=== PATIENT | female | born 1990 | race Asian ===

== ENCOUNTER 2016-07-07 18:48 | Emergency (ER) | payer OTHER ==
[~2016-07-07] VITALS: Ht 152.4 cm; Wt 49.4 kg
[2016-07-07 20:33] LABS: CONTROL LINE UCG INT CTR LINE PRESENT
[2016-07-07] MEDS ORDERED: NAPROXEN 250 MG TAB PO ONE (20:45)
[2016-07-07] MEDS ORDERED: PHENAZOPYRIDINE 100 MG TAB PO ONE (20:45)
[2016-07-07] MEDS ORDERED: CIPROFLOXACIN 500 MG TAB PO ONE (20:45)
[2016-07-07] MEDS ORDERED: CIPR500T89 PO (20:48)
[2016-07-07] MEDS ORDERED: PYRI200T5 PO (20:49)
[2016-07-07] MEDS ORDERED: NAPR500T PO (20:49)
[2016-07-07 22:04] VITALS: BP 111/67
== END 2016-07-07 22:10 | disposition home or self-care (01) ==
LOC: M ED 22:03
DX: N10 Acute pyelonephritis (principal)

== ENCOUNTER → 2017-04-06 | Outpatient (CLI) | payer OTHER | LOC: M RAD 10:15 | DX: M25.552 Pain in left hip (principal) | CPT/HCPCS: 72131 ==

== ENCOUNTER → 2017-04-16 | Outpatient (CLI) | payer OTHER ==
[~2017-04-16] MED LIST: PROHANCE 279.3MG/ML 15ML VIAL (A9576) As Ordered
== END ==
LOC: M RAD 13:06
DX: M54.5 Low back pain (principal)